=== PATIENT | male | born 1955 | race African-American/Black ===

== ENCOUNTER 2021-03-30 14:10 | Inpatient (IN) | payer OTHER ==
[2021-03-30 15:10] VITALS: BMI 22.2
[2021-03-30] MEDS ORDERED: MAGNESIUM CITRATE 300 ML BOTTLE PO PRN (19:55)
[2021-03-30] MEDS ORDERED: LOPERAMIDE HCL 2 MG CAPSULE PO PRN (19:55)
[2021-03-30] MEDS ORDERED: ACETAMINOPHEN 325 MG TABLET (FP) PO PRN (19:55)
[2021-03-30] MEDS ORDERED: P-EPHED 60MG/TRIPROLIDI 2.5MG TABLET PO PRN (19:55)
[2021-03-30] MEDS ORDERED: hydrOXYzine PAMOATE 25 MG CAPSULE (FP) PO PRN (19:55)
[2021-03-30] MEDS ORDERED: NICOTINE 10 MG CARTRIDGE (INHALER) IH PRN (19:55)
[2021-03-30] MEDS ORDERED: MAG HYDROX/AL HYDROX/SIMETH 30 ML UNIT-DOSE CUP PO PRN (19:55)
[2021-03-30] MEDS ORDERED: IBUPROFEN 400 MG TABLET (FP) PO PRN (19:55)
[2021-03-30] MEDS ORDERED: MAGNESIUM HYDROX 2400MG/30ML ORAL SUSPENSION 30 ML CUP PO PRN (19:55)
[2021-03-30] MEDS ORDERED: guaiFENesin 200 MG/10 ML 10 ML UNIT-DOSE CUPS PO PRN (19:55)
[2021-03-30] MEDS ORDERED: TUBERCULIN PPD 5 TU/0.1ML VIAL ID ONE (21:47)
[2021-03-30] MEDS: THIAMINE HCL 100 MG TABLET (FP) PO SCH (22:00)
[2021-03-30] MEDS: NIFEdipine E.R. 30 MG TABLET PO SCH (22:01)
[2021-03-30] MEDS: MELATONIN 5 MG TABLETS PO SCH (22:01)
[2021-03-30] MEDS: metFORMIN HCL 500 MG TABLET (FP) PO SCH (22:02)
[2021-03-31] MEDS: TAMSULOSIN HCL 0.4 MG CAP PO SCH (07:48)
[2021-03-31] MEDS: PRENATAL VITAMINS W/ FOLIC ACID TABLET (FP) PO SCH (09:57)
[2021-03-31] MEDS: NICOTINE 14 MG/24 HOURS TOPICAL PATCH TD SCH (09:57)
[2021-03-31] MEDS: metFORMIN HCL 500 MG TABLET (FP) PO SCH ×2 (09:57→21:00)
[2021-03-31] MEDS: NIFEdipine E.R. 30 MG TABLET PO SCH (09:57)
[2021-03-31 12:10] LABS: HEMATOCRIT 40.7 % (35.4-49); HEMOGLOBIN 13.7 GM/dL (11.7-16.9); MCH 28.3 pg (25.7-33.7); MCHC 33.6 g/dl (32.0-35.9); MEAN CELL VOLUME 84.2 fl (80-96); MEAN PLT VOLUME 8.8 fl (7.5-11.1); PLATELET COUNT 335 10^3/uL (134-434); RBC 4.83 M/mm3 (4.00-5.60); RDW 17.3 % (11.9-15.9); WHITE BLOOD COUNT 9.3 K/mm3 (4.0-10.0)
[2021-03-31 12:19] LABS: ALBUMIN 3.4 g/dl (3.4-5.0); BLOOD UREA NITROGEN 13.8 mg/dL (7-18)
[2021-03-31 12:25] LABS: BILIRUBIN,TOTAL 0.3 mg/dL (0.2-1); CREATININE 1.2 mg/dL (0.55-1.3)
[2021-03-31 12:26] LABS: TOT PROT 7.2 g/dl (6.4-8.2)
[2021-03-31 12:37] LABS: SYPHILIS W/ RPR CONF NON-REACTIVE (NONREACTIVE)
[2021-03-31 17:16] LABS: URINE APPEARANCE CLEAR; URINE BILIRUBIN NEGATIVE (NEGATIVE); URINE COLOR YELLOW; URINE GLUCOSE (UA) TRACE (NEGATIVE); URINE KETONE NEGATIVE (NEGATIVE); URINE LEUK ESTERASE NEGATIVE (NEGATIVE); URINE NITRITE NEGATIVE (NEGATIVE); URINE PROTEIN TRACE (NEGATIVE)
[2021-03-31] MEDS: THIAMINE HCL 100 MG TABLET (FP) PO SCH (21:00)
[2021-03-31] MEDS: MELATONIN 5 MG TABLETS PO SCH (21:00)
[2021-04-01] MEDS: TAMSULOSIN HCL 0.4 MG CAP PO SCH (07:32)
[2021-04-01] MEDS: PRENATAL VITAMINS W/ FOLIC ACID TABLET (FP) PO SCH (09:39)
[2021-04-01] MEDS: NIFEdipine E.R. 30 MG TABLET PO SCH (09:39)
[2021-04-01] MEDS: metFORMIN HCL 500 MG TABLET (FP) PO SCH ×2 (09:39→21:15)
[2021-04-01] MEDS: NICOTINE 14 MG/24 HOURS TOPICAL PATCH TD SCH (09:41)
[2021-04-01] MEDS: MELATONIN 5 MG TABLETS PO SCH (21:15)
[2021-04-01] MEDS: THIAMINE HCL 100 MG TABLET (FP) PO SCH (21:15)
[2021-04-02] MEDS: metFORMIN HCL 500 MG TABLET (FP) PO SCH ×2 (09:20→21:24)
[2021-04-02] MEDS: PRENATAL VITAMINS W/ FOLIC ACID TABLET (FP) PO SCH (09:20)
[2021-04-02] MEDS: NIFEdipine E.R. 30 MG TABLET PO SCH (09:20)
[2021-04-02] MEDS: TAMSULOSIN HCL 0.4 MG CAP PO SCH (09:21)
[2021-04-02] MEDS: NICOTINE 14 MG/24 HOURS TOPICAL PATCH TD SCH (10:09)
[2021-04-02] MEDS: THIAMINE HCL 100 MG TABLET (FP) PO SCH (21:24)
[2021-04-02] MEDS: MELATONIN 5 MG TABLETS PO SCH (21:24)
[2021-04-03] MEDS: PRENATAL VITAMINS W/ FOLIC ACID TABLET (FP) PO SCH (09:45)
[2021-04-03] MEDS: NICOTINE 14 MG/24 HOURS TOPICAL PATCH TD SCH (09:46)
[2021-04-03] MEDS: NIFEdipine E.R. 30 MG TABLET PO SCH (09:46)
[2021-04-03] MEDS: TAMSULOSIN HCL 0.4 MG CAP PO SCH (09:46)
[2021-04-03] MEDS: metFORMIN HCL 500 MG TABLET (FP) PO SCH ×2 (09:46→21:25)
[2021-04-03] MEDS: MELATONIN 5 MG TABLETS PO SCH (21:25)
[2021-04-03] MEDS: THIAMINE HCL 100 MG TABLET (FP) PO SCH (21:25)
[2021-04-04] MEDS: TAMSULOSIN HCL 0.4 MG CAP PO SCH (07:30)
[2021-04-04] MEDS ORDERED: PT OWN MED DRAWER 7, Y5N ONE ×2 (09:03→10:14)
[2021-04-04 09:22] VITALS: PULSE 73
[2021-04-04] MEDS: metFORMIN HCL 500 MG TABLET (FP) PO SCH ×2 (10:11→21:16)
[2021-04-04] MEDS: PRENATAL VITAMINS W/ FOLIC ACID TABLET (FP) PO SCH (10:12)
[2021-04-04] MEDS: NICOTINE 14 MG/24 HOURS TOPICAL PATCH TD SCH (10:12)
[2021-04-04] MEDS ORDERED: SUVOREXANT 10 MG TABLET PO PRN (10:27)
[2021-04-04] MEDS: NIFEdipine E.R. 90 MG TABLET PO SCH (11:26)
[2021-04-04] MEDS: NIFEdipine E.R. 30 MG TABLET PO SCH (13:33)
[2021-04-04] MEDS: MELATONIN 5 MG TABLETS PO SCH (21:16)
[2021-04-04] MEDS: THIAMINE HCL 100 MG TABLET (FP) PO SCH (21:16)
[2021-04-05] MEDS ORDERED: PT OWN MED DRAWER 7, Y5N ONE (03:13)
[2021-04-05] MEDS: NIFEdipine E.R. 90 MG TABLET PO SCH (06:12)
[2021-04-05 07:19] VITALS: BP 128/72; TEMP 97.8
[2021-04-05] MEDS: TAMSULOSIN HCL 0.4 MG CAP PO SCH (07:39)
[2021-04-05] MEDS: PRENATAL VITAMINS W/ FOLIC ACID TABLET (FP) PO SCH (09:15)
[2021-04-05] MEDS: metFORMIN HCL 500 MG TABLET (FP) PO SCH (09:15)
== END 2021-04-05 10:00 | disposition home or self-care (01) | DRG 772 ==
LOC: YASAS 14:10 → Y3W 20:35
PROVIDERS: ADMIT Allergy & Immunology; ATTEND Allergy & Immunology
PROC: HZ42ZZZ Group Counseling for Substance Abuse Treatment, Cognitive-Behavioral (ICD-10-PCS; principal; 2021-03-30)
DX: F14.20 Cocaine dependence, uncomplicated (principal); F17.210 Nicotine dependence, cigarettes, uncomplicated; G47.00 Insomnia, unspecified; I10 Essential (primary) hypertension; E11.9 Type 2 diabetes mellitus without complications; Z79.84 Long term (current) use of oral hypoglycemic drugs; N40.0 Benign prostatic hyperplasia without lower urinary tract symptoms; Z91.14 Patient's other noncompliance with medication regimen
CPT/HCPCS: 36415; 80053; 81003; 82962; 85027; 86780; 86803; 93005; 93010; C9803; U0003; U0005